=== PATIENT | female | born 2000 | race Caucasian/White ===

== ENCOUNTER 2020-06-23 18:24 | Emergency (ER) | payer OTHER ==
[2020-06-23 18:47] LABS: Pregnancy Test - Urine (BHCG) Negative (Negative)
[2020-06-23 18:48] LABS: Pregu Control Background? CLEAR/WHITE (CLR/WHITE); Pregu Control Bar Appear? YES (CONTROL BAR)
[2020-06-23 18:49] LABS: Specific Gravity 1.015 (1.002-1.036)
[2020-06-23 19:05] LABS: #Basophils 0.1 thou/uL (0.0-0.2); #Eosinphils 0.1 thou/uL (0.0-0.7); #Lymphocytes 1.9 thou/uL (1.20-3.40); #Monocytes 0.6 thou/uL (0.11-0.59); #Neutrophils 6.4 thou/uL (1.40-6.50); %Basophils 0.6 % (0.0-1.0); %Eosinophils 0.7 % (0.0-10.0); %Lymphocytes 20.6 % (28.0-48.0); %Monocytes 7.1 % (0.0-4.0); Hemoglobin 13.9 g/dL (12.0-16.0); Mean Corpuscular HGB CONC 34.8 g/dL (32.0-36.0); Mean Corpuscular Hemoglobin 31.8 pg (25.0-35.0); Mean Corpuscular Volume 91.6 fL (78.0-98.0); Mean Platelet Volume 7.6 fL (7.4-10.4); Platelet Count 232 thou/uL (130-400); RBC Distribution Width 11.1 % (11.5-14.5); Red Blood Cell (RBC) Count 4.38 mill/uL (4.00-5.20); White Blood Cell (WBC) Count 9.1 thou/uL (4.8-10.8)
[2020-06-23 19:09] LABS: ALT (SGPT) 15 U/L (8-55); AST (SGOT) 15 U/L (5-34); Albumin 4.5 g/dL (3.5-5.0); Alkaline Phosphatase 43 U/L (40-100); Anion Gap 14 mmol/L (10-20); BUN (Urea Nitrogen) 13 mg/dL (7.0-18.7); Bilirubin, Total 0.6 mg/dL (0.2-1.2); Calc. Creatinine Clearance 0 mL/min (70-130); Calcium 9.3 mg/dL (7.8-10.44); Carbon Dioxide 24 mmol/L (22-29); Chloride 108 mmol/L (98-107); Globulin 2.3 g/dL (2.4-3.5); Glucose 116 mg/dL (70-105); Potassium 3.9 mmol/L (3.5-5.1); Protein, Total 6.8 g/dL (6.0-8.3); Sodium 142 mmol/L (136-145)
[2020-06-23] MEDS ORDERED: Fluorescein Opthalmic Strip ONE (19:48)
[2020-06-23] MEDS ORDERED: Tetracaine 0.5% PF 4 ML BOT ONE (19:48)
[2020-06-23 19:55] LABS: Bilirubin Negative (Negative); Blood, Urine Small (Negative); Clarity Clear (Clear); Glucose, Urine (Dipstick) Negative (Negative); Ketone, Urine Negative (Negative); Leukocyte Small (Negative); Nitrite Negative (Negative); Protein, Urine (Dipstick) Negative (Neg-Trace); Specific Gravity, Urine 1.015 (1.005-1.030); Urobilinogen 0.2 mg/dL (Less than 2)
[2020-06-23] MEDS ORDERED: Boostrix 0.5 ML (Tdap) VIAL ONE (20:22)
[2020-06-23] MEDS ORDERED: Cephalexin 250 MG CAP ONE (20:22)
[2020-06-23 20:47] LABS: RBC/HPF 0-3 HPF (0-3)
[2020-06-23 20:48] LABS: Bacteria/HPF None Seen HPF (None Seen); Squamous Epithelial 0-3 HPF (0-3); Transitional Epithelial 0-3 HPF (None Seen)
== END 2020-06-23 20:34 | disposition home or self-care (01) ==
LOC: BURERS 18:24
DX: S60.552A Superficial foreign body of left hand, initial encounter (principal); S00.05XA Superficial foreign body of scalp, initial encounter; S70.312A Abrasion, left thigh, initial encounter; S00.81XA Abrasion of other part of head, initial encounter; V49.9XXA Car occupant (driver) (passenger) injured in unspecified traffic accident, initial encounter
CPT/HCPCS: 70450; 70486; 71045; 72125; 80053; 81003; 81015; 81025; 85025; 90471; 90715; G0390